=== PATIENT | male | born 1955 | race Caucasian/White ===

== ENCOUNTER 2017-04-02 02:37 | Inpatient (IN) | payer OTHER ==
[~2017-04-02] VITALS: Ht 170.2 cm; Wt 64.0 kg
[2017-04-02] MEDS ORDERED: NEURONTIN 400400 MG PO (04:47)
[2017-04-02] MEDS ORDERED: SILVADENE20 GM TP (04:49)
[2017-04-02] MEDS ORDERED: SULFAMETHOXAZO1 EACH PO (04:50)
[2017-04-02] MEDS ORDERED: JANUVIA 100 MG100 MG PO (04:51)
[2017-04-02] MEDS ORDERED: NORVASC 5 MG TAB5 MG PO (04:51)
[2017-04-02 04:52] LABS: HEMOGLOBIN 12.8 gm/dl (14.0-17.5); RED BLOOD COUNT 4.35 M/UL (4.20-5.50); WHITE BLOOD COUNT 14.6 K/UL (4.5-11.0)
[2017-04-02] MEDS ORDERED: GLUCOTROL5 MG PO (04:52)
[2017-04-02] MEDS ORDERED: ALLEGRA ALLERG180 MG PO (04:52)
[2017-04-02] MEDS ORDERED: COZAAR50 MG PO (04:53)
[2017-04-02] MEDS ORDERED: LOPRESSOR50 MG PO (04:53)
[2017-04-02] MEDS ORDERED: FLOMAX 0.4 MG0.4 MG PO (04:54)
[2017-04-02] MEDS ORDERED: ULTRAM50 MG PO (04:55)
[2017-04-02] MEDS ORDERED: FLONASE 0.05% N16 GM (04:56)
[2017-04-02] MEDS ORDERED: VENTOLIN/PROVE0.5 ML INH (04:56)
[2017-04-03 03:37] LABS: HEMOGLOBIN 11.1 gm/dl (14.0-17.5); WHITE BLOOD COUNT 18.2 K/UL (4.5-11.0)
[2017-04-03 03:38] LABS: RED BLOOD COUNT 3.85 M/UL (4.20-5.50)
[2017-04-04 03:36] LABS: HEMOGLOBIN 11.2 gm/dl (14.0-17.5); RED BLOOD COUNT 3.79 M/UL (4.20-5.50)
[2017-04-04 03:38] LABS: WHITE BLOOD COUNT 12.7 K/UL (4.5-11.0)
[2017-04-05 03:54] LABS: RED BLOOD COUNT 3.75 M/UL (4.20-5.50)
[2017-04-05 03:57] LABS: WHITE BLOOD COUNT 8.9 K/UL (4.5-11.0)
[2017-04-08 05:32] LABS: HEMOGLOBIN 12.9 gm/dl (14.0-17.5); RED BLOOD COUNT 4.4 M/UL (4.20-5.50); WHITE BLOOD COUNT 10.8 K/UL (4.5-11.0)
[2017-04-09] MEDS ORDERED: ASPIR 8181 MG PO (14:34)
[2017-04-09] MEDS ORDERED: LIPITOR40 MG PO (14:36)
[2017-04-09] MEDS ORDERED: PLAVIX 75 MG TA75 MG PO (14:37)
[2017-04-09] MEDS ORDERED: SODIUM BICARBO650 MG PO (14:41)
[2017-04-09] MEDS ORDERED: KEFLEX CAP 500500 MG PO (14:47)
== END 2017-04-09 15:55 | disposition home health service (06) | DRG 37 ==
LOC: CCU 03:34 → M/S 04-07 20:30
PROVIDERS: Emergency Medicine; Internal Medicine Nephrology; ADMIT Internal Medicine
PROC: 047J3ZZ Dilation of Left External Iliac Artery, Percutaneous Approach (ICD-10-PCS; principal; 2017-04-07)
PROC: B41G1ZZ Fluoroscopy of Left Lower Extremity Arteries using Low Osmolar Contrast (ICD-10-PCS; 2017-04-07)
PROC: B41F1ZZ Fluoroscopy of Right Lower Extremity Arteries using Low Osmolar Contrast (ICD-10-PCS; 2017-04-07)
DX: I63.232 Cerebral infarction due to unspecified occlusion or stenosis of left carotid arteries (principal); G93.41 Metabolic encephalopathy; N17.9 Acute kidney failure, unspecified; E87.2 Acidosis; N18.3 Chronic kidney disease, stage 3 (moderate); I73.9 Peripheral vascular disease, unspecified; R00.1 Bradycardia, unspecified; F17.210 Nicotine dependence, cigarettes, uncomplicated; Z86.73 Personal history of transient ischemic attack (TIA), and cerebral infarction without residual deficits; E11.621 Type 2 diabetes mellitus with foot ulcer; E83.42 Hypomagnesemia; R90.0 Intracranial space-occupying lesion found on diagnostic imaging of central nervous system; J44.9 Chronic obstructive pulmonary disease, unspecified; I12.9 Hypertensive chronic kidney disease with stage 1 through stage 4 chronic kidney disease, or unspecified chronic kidney disease; R53.1 Weakness; E87.5 Hyperkalemia; Z98.890 Other specified postprocedural states; Z88.8 Allergy status to other drugs, medicaments and biological substances; Z79.899 Other long term (current) drug therapy; Z79.84 Long term (current) use of oral hypoglycemic drugs; E11.40 Type 2 diabetes mellitus with diabetic neuropathy, unspecified; Z82.3 Family history of stroke; Z83.3 Family history of diabetes mellitus; R41.82 Altered mental status, unspecified; L97.519 Non-pressure chronic ulcer of other part of right foot with unspecified severity
CPT/HCPCS: 36200; 36415; 70544; 70551; 75630; 80048; 80053; 80202; 80307; 82436; 82550; 82553; 82570; 82962; 83605; 83735; 84133; 84156; 84300; 84484; 85027; 85347; 87070; 87205; 89050; 93880; 93925; 94640; 94664; 97110; 97116; 97530; 97535; C1887; C9113; G0480; J1644; J1650; J2250; J2405; J3010; J3370; J7030; J7070; Q0163; Q9965